=== PATIENT | female | born 1990 | race Caucasian/White ===

== ENCOUNTER 2016-10-03 23:36 | Emergency (ER) | payer BC ==
[2016-10-03 23:48] VITALS: BP 121/78
--- NOTE | 2016-10-04 00:13 | EDM.PDOC ---
ED HPI GENERAL MEDICAL PROBLEM - General Chief Complaint: Genitourinary Problem Stated Complaint: UTI Time Seen by Provider: 10/03/16 23:53 Source of Information: Reports: Patient, Family (), RN Notes Reviewed History Limitations: Reports: No Limitations - History of Present Illness INITIAL COMMENTS - FREE TEXT/NARRATIVE: The patient states that she developed lower back pain on , 09/28/2016. By 09/29/2016, she developed chills, a cough, stuffy nose, headache, and decreased appetite. She was seen at the walk-in clinic on 10/02/2016, where a rapid strep test and urinalysis were performed and both were negative. She was offered antibiotics anyway, but declined. She states that she has since developed a fever, with a Tmax of 102 last night , per an electronic forehead thermometer. She has been taking Tylenol and ibuprofen for her symptoms. The patient denies recent dysuria, frequency, or urgency, however, she reports that her urine has been cloudy and malodorous for the past few days. No prior similar symptoms. The patient does not have a PCP. - Related Data Allergies Allergy/AdvReac Type Severity Reaction Status Date / Time Sulfa (Sulfonamide Allergy Cannot Verified 10/03/16 23:48 Antibiotics) Remember Home Meds: Home Meds Levofloxacin [Levaquin] 250 mg PO Q24H #6 tablet 10/04/16 [Rx] Past Medical History - Past Surgical History Musculoskeletal Surgical History: Reports: Other (See Below) (Left knee repair December 2015) Social & Family History - Family History Family Medical History: Noncontributory - Tobacco Use Smoking Status *Q: Former Smoker Month Tobacco Last Used: 2012 Second Hand Smoke Exposure: Yes - Caffeine Use Caffeine Use: Reports: None - Alcohol Use Alcohol Use History: No - Recreational Drug Use Recreational Drug Use: No - Living Situation & Occupation Living situation: Reports: , with Spouse Occupation: Employed () ED ROS GENERAL - Review of Systems Review Of Systems: See Below Constitutional: Reports: No Symptoms HEENT: Reports: No Symptoms Respiratory: Reports: No Symptoms Cardiovascular: Reports: No Symptoms Endocrine: Reports: No Symptoms GI/Abdominal: Reports: No Symptoms : Reports: No Symptoms Musculoskeletal: Reports: No Symptoms Skin: Reports: No Symptoms Neurological: Reports: No Symptoms Psychiatric: Reports: No Symptoms Hematologic/Lymphatic: Reports: No Symptoms Immunologic: Reports: No Symptoms ED EXAM, GENERAL - Physical Exam Exam: See Below Exam Limited By: No Limitations General Appearance: Alert, WD/WN, No Apparent Distress Eye Exam: Bilateral Eye: Normal Inspection Ears: Normal External Exam, Hearing Grossly Normal Nose: Normal Inspection, No Blood Throat/Mouth: Normal Inspection, Normal Lips, Normal Voice, No Airway Compromise Head: Atraumatic, Normocephalic Neck: Normal Inspection, Full Range of Motion Respiratory/Chest: No Respiratory Distress, Lungs Clear, Normal Breath Sounds, No Accessory Muscle Use Cardiovascular: Normal Peripheral Pulses, Regular Rate, Rhythm, No Gallop, No JVD, No Murmur, No Rub Peripheral Pulses: 4+: Radial (L), Radial (R) GI/Abdominal: Normal Bowel Sounds, Soft, No Organomegaly, No Distention, No Abnormal Bruit, No Mass, Tender (Mild, generalized, non-focal) (Female) Exam: Deferred Rectal (Female) Exam: Deferred Back Exam: Normal Inspection, Full Range of Motion, CVA Tenderness (R). No: CVA Tenderness (L) Extremities: Normal Inspection, Normal Range of Motion, No Pedal Edema, Normal Capillary Refill Neurological: Alert, Oriented, Normal Cognition, No Motor/Sensory Deficits Psychiatric: Normal Affect Skin Exam: Warm, Dry, Intact, Normal Color, No Rash Lymphatic: No Adenopathy Course - Vital Signs Last Recorded V/S: Last Vital Signs Temp 36.6 C 10/03/16 23:41 Pulse 88 10/03/16 23:41 Resp 18 10/03/16 23:41 BP 121/78 10/03/16 23:41 Pulse Ox 98 10/03/16 23:41 - Orders/Labs/Meds Orders: Active Orders 24 hr Category Date Time Status CULTURE URINE [RM] Stat Lab 10/04/16 00:21 Uncollected Levofloxacin [Levaquin] Med 10/04/16 00:22 Stat 500 mg PO ONETIME STA Labs: Laboratory Tests 10/03/16 10/03/16 Range/Units 23:45 23:45 Urine Color Yellow (Yellow) Urine Appearance Slt cloudy H (Clear) Urine pH 6.0 (5.0-8.0) Ur Specific [place] > or = 1.030 (1.005-1.030) Urine Protein 2+ H (Negative) Urine Glucose (UA) Negative (Negative) Urine Ketones Negative (Negative) Urine Occult Blood 2+ H (Negative) Urine Nitrite Positive H (Negative) Urine Bilirubin Negative (Negative) Urine Urobilinogen 0.2 (0.2-1.0) Ur Leukocyte Esterase 1+ H (Negative) Urine RBC 0-5 (0-5) /hpf Urine WBC 20-30 H (0-5) /hpf Ur Epithelial Cells 0-5 (0-5) /hpf Urine Bacteria Moderate H (FEW) /hpf Urine Mucus Few (FEW) /hpf Urine HCG, Qual Negative (NEGATIVE) - Re-Assessments/Exams Free Text/Narrative Re-Assessment/Exam: 10/04/16 00:22 The patient's urinalysis is consistent with a UTI. A urine culture has been ordered. As the patient has right flank pain, and a history of a fever, clinically, she has pyelonephritis. Fluoroquinolones are the only oral antimicrobial recommended for the outpatient empiric treatment of acute on, due to pyelonephritis. I have therefore started the patient on oral Levaquin, and will e-prescribe the same. Departure - Departure Time of Disposition: 00:32 Disposition: Home, Self-Care 01 Condition: Fair Clinical Impression: Pyelonephritis - Discharge Information Referrals: PCP,None [Primary Care Provider] - Beulah Briones PA-C [Physician Coater Hand] - Forms: ED Department Discharge Additional Instructions: You were seen in the emergency room for low back pain, fever and chills, cough, stuffy nose, headache, and decreased appetite. Workup in the ER included a urinalysis and urine test. A sample of your urine has also been sent for culture. Your urinalysis is consistent with a urinary tract infection. Because you have flank pain, tenderness, and fever, you likely have pyelonephritis, an infection of your kidney. You have been started on the antibiotic Levaquin. Take one tablet every evening , as prescribed. Check with your pharmacist to make sure that it is okay to crush this medicine. Finish the entire prescription unless told otherwise by a doctor. Stay adequately hydrated. Take [id number] ibuprofen, 2-3 tablets (400-600 mg) every 8 hours, with food, as needed for discomfort. Follow-up with Beulah Briones in the clinic on 10/06/2016, to check on your urine culture results, to make sure that you are on the right antibiotic. If any other problems, please do not hesitate to return to the ER. - My Orders Last 24 Hours: My Active Orders 10/04/16 00:21 CULTURE URINE [RM] Stat 10/04/16 00:22 Levofloxacin [Levaquin] 500 mg PO ONETIME STA - Assessment/Plan Last 24 Hours: My Active Orders 10/04/16 00:21 CULTURE URINE [RM] Stat 10/04/16 00:22 Levofloxacin [Levaquin] 500 mg PO ONETIME STA
[2016-10-04] MEDS ORDERED: Levofloxacin 500 MG Tab PO STA (00:22)
== END 2016-10-04 00:43 | disposition home or self-care (01) ==
LOC: JD.ED 23:36
DX: N12 Tubulo-interstitial nephritis, not specified as acute or chronic (principal); Z87.891 Personal history of nicotine dependence; Z88.2 Allergy status to sulfonamides
CPT/HCPCS: 81001; 81025; 87086; 87088; 87186; 99284; A9270; 99283

== ENCOUNTER 2017-08-16 15:03 | Inpatient (IN) | payer BC ==
[2017-08-16] MEDS ORDERED: Sodium Chloride 0.9% 10 ML Syringe FLUSH PRN (16:27)
--- NOTE | 2017-08-16 17:14 | PCM.LDHP ---
L&D History of Present Illness - General Date of Service: 08/16/17 Admit Problem/Dx: Patient Status Order with Admit Dx/Problem 08/16/17 16:27 Patient Status [ADT] Routine Admission Diagnosis/Problem Admission Diagnosis/Problem 08/16/17 17:09 Leakage of fluid in Source of Information: Patient History Limitations: Reports: No Limitations - History of Present Illness Introduction:: 27 yo G1 at 39 weeks 2 days gestation (based on 10 week ultrasound) presents to labor and delivery with possible SROM at home. States two days ago she had some leakage, she wasn't sure if it was her mucus plug or not. Today she notes LOF started at noon. she has had normal movement. Amnisure on the floor was positive, blood was present which can cause false positive continued leakage of fluid since presentation to labor and delivery. routine care. GBS neg B positive pt has refused TDAP immunization Location, : Reports: Abdomen Quality: Reports: Ache Severity: Mild Associated Symptoms: Reports: vaginal fluid. Denies: vaginal bleeding, vaginal clots - Related Data Allergies/Adverse Reactions: Allergies Allergy/AdvReac Type Severity Reaction Status Date / Time Sulfa (Sulfonamide Allergy Cannot Verified 08/16/17 15:39 Antibiotics) Remember Home Medications: Home Meds Iron 18 mg PO 08/16/17 [History] Vits #93/Iron Fum/FA [ Formula Tablet] 08/16/17 [History] Past Medical History - Past Health History Medical/Surgical History: Denies Medical/Surgical History HEENT History: Reports: None Cardiovascular History: Reports: None Respiratory History: Reports: None Gastrointestinal History: Reports: None Genitourinary History: Reports: Other (See Below) Other Genitourinary History: pyelonephritis 09/2016 [employer] History: Reports: Musculoskeletal History: Reports: None Neurological History: Reports: None Psychiatric History: Reports: None Endocrine/Metabolic History: Reports: None - Past Surgical History HEENT Surgical History: Reports: Oral Surgery Female Surgical History: Reports: None Musculoskeletal Surgical History: Reports: Other (See Below) Social & Family History - Family History Family Medical History: Noncontributory - Tobacco Use Smoking Status *Q: Former Smoker Used Tobacco, but Quit: Yes Month/Year Tobacco Last Used: 2013 - Caffeine Use Caffeine Use: Reports: None - Recreational Drug Use Recreational Drug Use: No - Living Situation & Occupation Living situation: Reports: , with Spouse Occupation: Employed () H&P Review of Systems - Review of Systems: Review Of Systems: See Below General: Reports: No Symptoms HEENT: Reports: No Symptoms Pulmonary: Reports: No Symptoms Cardiovascular: Reports: No Symptoms Gastrointestinal: Reports: No Symptoms Genitourinary: Reports: No Symptoms, Other (contractions) Musculoskeletal: Reports: No Symptoms Skin: Reports: No Symptoms Psychiatric: Reports: No Symptoms L&D Exam - Exam Exam: See Below - Vital Signs Vital Signs: Last Vital Signs Temp 36.8 C 08/16/17 15:20 Pulse 69 08/16/17 15:20 Resp 18 08/16/17 15:20 BP 130/75 08/16/17 15:20 Pulse Ox Weight: 82.1 kg - OB Specific Contraction Intensity: Mild to Moderate Movement: Active Heart Tones: Present Heart Tones per Min: 135 Presentation: Vertex Estimated Weight: 3500 - Reyes Score Reyes Score Cervix Position: Posterior Reyes Score Consistency: Soft Reyes Score Effacement: >80% Reyes Score Dilation: 1-2 cm Reyes Score 's Station: -2 Reyes Score Total: 7 - Exam General: Alert, Oriented HEENT: Conjunctiva Clear Genitourinary: Normal external exam Extremities: Normal Inspection, No Pedal Edema Skin: Warm, Dry DTR: 2+: Patella (L), Patella (R) Psychiatric: Alert, Normal Affect, Normal Mood - Patient Data Lab Results Last 24 hrs: Laboratory Results - last 24 hr 08/16/17 08/16/17 Range/Units 15:30 16:48 WBC 11.96 H (3.98-10.04) K/mm3 RBC 4.08 (3.98-5.22) M/mm3 Hgb 12.4 (11.2-15.7) gm/L Hct 36.0 (34.1-44.9) % MCV 88.2 (79.4-94.8) fl MCH 30.4 (25.6-32.2) pg MCHC 34.4 (32.2-35.5) g/dl RDW Std Deviation 43.0 (36.4-46.3) fL Plt Count 215 (182-369) K/mm3 MPV 10.2 (9.4-12.3) fl Neut % (Auto) 77.2 H (34.0-71.1) % Lymph % (Auto) 14.5 L (19.3-51.7) % [place] % (Auto) 7.1 (4.7-12.5) % Eos % (Auto) 0.8 (0.7-5.8) Baso % (Auto) 0.1 (0.1-1.2) % Neut # (Auto) 9.23 H (1.56-6.13) K/mm3 Lymph # (Auto) 1.74 (1.18-3.74) K/mm3 [place] # (Auto) 0.85 H (0.24-0.36) K/mm3 Eos # (Auto) 0.10 (0.04-0.36) K/mm3 Baso # (Auto) 0.01 (0.01-0.08) K/mm3 Membrane Rupture Positive H Result Diagrams: 08/16/17 16:48 - Problem List (1) Normal labor SNOMED Code(s): 42789202 ICD Code: O80 - ENCOUNTER FOR FULL-TERM UNCOMPLICATED DELIVERY; Z37.9 - OUTCOME OF DELIVERY, UNSPECIFIED Status: Acute Current Visit: Yes Problem List Initiated/Reviewed/Updated: Yes Orders Last 24hrs: Active Orders 24 hr Category Date Time Status Patient Status [ADT] Routine ADT 08/16/17 16:27 Active Activity as Tolerated [RC] PFP Care 08/16/17 16:27 Active Communication Order [RC] ASDIRECTED Care 08/16/17 16:27 Active Heart Tones [RC] ASDIRECTED Care 08/16/17 16:27 Active Non Stress Test [RC] PER UNIT ROUTINE Care 08/16/17 15:33 Active Insert Kevin Catheter [Insert Urinary Catheter] [OM.PC] Care 08/16/17 16:30 Ordered Q24H Notify Provider [RC] PFP Care 08/16/17 16:27 Active Notify Provider [RC] PRN Care 08/16/17 16:27 Active PCEA Epidural [RC] ASDIRECTED Care 08/16/17 16:29 Active Peripheral IV Care [RC] . DIRECTED Care 08/16/17 16:27 Active Urinary Catheter Assessment [RC] ASDIRECTED Care 08/16/17 16:29 Active Vaginal Exam [RC] PRN Care 08/16/17 15:33 Active Vital Signs [RC] PER UNIT ROUTINE Care 08/16/17 15:33 Active TYPE AND SCREEN [BBK] Stat Lab 08/16/17 16:27 Ordered Lactated Ringers [Ringers, Lactated] 1,000 ml Med 08/16/17 16:30 Active IV ASDIRECTED Sodium Chloride 0.9% [Saline Flush] Med 08/16/17 16:27 Active 10 ml FLUSH ASDIRECTED PRN Electronic Heart Tones Ext w TOCO [WOMSER] Oth 08/16/17 16:27 Ordered Routine Electronic Heart Tones Internal [WOMSER] Per Unit Oth 08/16/17 16:27 Ordered Routine Peripheral IV Insertion Adult [OM.PC] Routine Oth 08/16/17 16:27 Ordered Resuscitation Status Routine Resus Stat 08/16/17 15:33 Ordered Medication Orders Lactated Ringer's (Ringers, Lactated) 1,000 mls @ 100 mls/hr IV ASDIRECTED ALDO Sodium Chloride (Saline Flush) 10 ml FLUSH ASDIRECTED PRN PRN Reason: Keep Vein Open Assessment/Plan Comment:: 27 yo G1 with SROM which likely occured at 1200 today with onset of contractions after SROM. Pt is GBS neg contractions have not been regular. She has minimal cervical dilation at this time. Nursing will check cervix at 1900. If no cervical change will start pitocin. Pain control per pt request. Anticipate vaginal delviery
[2017-08-16] MEDS ORDERED: Bupivacaine 0.25% 10 ML SDV ONE (18:00)
[2017-08-16] MEDS ORDERED: ePHEDrine 50 MG/ML SDV IVPUSH PRN (19:04)
[2017-08-16] MEDS ORDERED: fentaNYL 100 MCG/2 ML SDV EPIDUR PRN (19:04)
[2017-08-16] MEDS ORDERED: diphenhydrAMINE 50 MG/ML SDV IVPUSH PRN (19:04)
[2017-08-16] MEDS ORDERED: Bupivacaine/fentaNYL/NS 100 ML Bag EPIDUR SCH (19:15)
[2017-08-16] MEDS: Lactated Ringers 1,000 ML IV SCH (19:40)
--- NOTE | 2017-08-16 20:31 | PCM.PREANE ---
Preanesthetic Assessment - Anesthesia/Transfusion/Family Hx Anesthesia History: Prior Anesthesia Without Reaction Family History of Anesthesia Reaction: No Transfusion History: No Prior Transfusion(s) - Review of Systems General: No Symptoms Pulmonary: No Symptoms Cardiovascular: No Symptoms Gastrointestinal: No Symptoms Neurological: No Symptoms Other: Reports: None - Physical Assessment Pulse: 69 O2 Sat by Pulse Oximetry: 97 Respiratory Rate: 18 Blood Pressure: 130/75 Temperature: 36.3 C Vital Signs: Last Vital Signs Temp 36.8 C 08/16/17 15:20 Pulse 69 08/16/17 15:20 Resp 18 08/16/17 15:20 BP 130/75 08/16/17 15:20 Pulse Ox Height: 1.65 m Weight: 82.1 kg ASA Class: 2 Mental Status: Alert & Oriented x3 Airway Class: Mallampati = 1 Dentition: Reports: Normal Dentition Thyro-Mental Finger Breadths: 3 Mouth Opening Finger Breadths: 3 ROM/Head Extension: Full Lungs: Clear to Auscultation, Normal Respiratory Effort Cardiovascular: Regular Rate, Regular Rhythm - Lab Values: Laboratory Last Values WBC 11.96 K/mm3 (3.98-10.04) H 08/16/17 16:48 RBC 4.08 M/mm3 (3.98-5.22) 08/16/17 16:48 Hgb 12.4 gm/L (11.2-15.7) 08/16/17 16:48 Hct 36.0 % (34.1-44.9) 08/16/17 16:48 MCV 88.2 fl (79.4-94.8) 08/16/17 16:48 MCH 30.4 pg (25.6-32.2) 08/16/17 16:48 MCHC 34.4 g/dl (32.2-35.5) 08/16/17 16:48 RDW Std Deviation 43.0 fL (36.4-46.3) 08/16/17 16:48 Plt Count 215 K/mm3 (182-369) 08/16/17 16:48 MPV 10.2 fl (9.4-12.3) 08/16/17 16:48 Neut % (Auto) 77.2 % (34.0-71.1) H 08/16/17 16:48 Lymph % (Auto) 14.5 % (19.3-51.7) L 08/16/17 16:48 [place] % (Auto) 7.1 % (4.7-12.5) 08/16/17 16:48 Eos % (Auto) 0.8 (0.7-5.8) 08/16/17 16:48 Baso % (Auto) 0.1 % (0.1-1.2) 08/16/17 16:48 Neut # (Auto) 9.23 K/mm3 (1.56-6.13) H 08/16/17 16:48 Lymph # (Auto) 1.74 K/mm3 (1.18-3.74) 08/16/17 16:48 [place] # (Auto) 0.85 K/mm3 (0.24-0.36) H 08/16/17 16:48 Eos # (Auto) 0.10 K/mm3 (0.04-0.36) 08/16/17 16:48 Baso # (Auto) 0.01 K/mm3 (0.01-0.08) 08/16/17 16:48 Membrane Rupture Positive H 08/16/17 15:30 Blood Type B POSITIVE 08/16/17 16:48 Gel Antibody Screen Negative 08/16/17 16:48 - Allergies Allergies/Adverse Reactions: Allergies Allergy/AdvReac Type Severity Reaction Status Date / Time Sulfa (Sulfonamide Allergy Cannot Verified 08/16/17 15:39 Antibiotics) Remember - Anesthesia Plan Pre-Op Medication Ordered: None - Acknowledgements Anesthesia Type Planned: Epidural Pt an Appropriate Candidate for the Planned Anesthesia: Yes Alternatives and Risks of Anesthesia Discussed w Pt/Guardian: Yes Pt/Guardian Understands and Agrees with Anesthesia Plan: Yes PreAnesthesia Questionnaire - Past Health History Medical/Surgical History: Denies Medical/Surgical History HEENT History: Reports: None Cardiovascular History: Reports: None Respiratory History: Reports: None Gastrointestinal History: Reports: None Genitourinary History: Reports: Other (See Below) Other Genitourinary History: pyelonephritis 09/2016 [employer] History: Reports: Musculoskeletal History: Reports: None Neurological History: Reports: None Psychiatric History: Reports: None Endocrine/Metabolic History: Reports: None - Past Surgical History HEENT Surgical History: Reports: Oral Surgery Female Surgical History: Reports: None Musculoskeletal Surgical History: Reports: Other (See Below) - SUBSTANCE USE Smoking Status *Q: Former Smoker Tobacco Use Within Last Twelve Months: No Recreational Drug Use History: No - HOME MEDS Home Medications: Home Meds Iron 18 mg PO 08/16/17 [History] Vits #93/Iron Fum/FA [ Formula Tablet] 08/16/17 [History] - CURRENT (IN HOUSE) MEDS Current Meds: Current Medications Diphenhydramine HCl (Benadryl) 25 mg IVPUSH Q6H PRN PRN Reason: Itching Ephedrine Sulfate (Ephedrine Sulfate) 5 mg IVPUSH ASDIRECTED PRN PRN Reason: HYPOTENTSION Fentanyl (Sublimaze) 100 mcg EPIDUR Q3H PRN PRN Reason: PAIN Last Admin: 08/16/17 20:15 Dose: 100 mcg Fentanyl/Bupivacaine HCl (Fentanyl/Bupivacaine/Ns 2 Mcg-0.125% 100 Ml) 100 ml EPIDUR ASDIRECTED ALDO Last Admin: 08/16/17 20:16 Dose: 100 ml Lactated Ringer's (Ringers, Lactated) 1,000 mls @ 100 mls/hr IV ASDIRECTED ALDO Sodium Chloride (Saline Flush) 10 ml FLUSH ASDIRECTED PRN PRN Reason: Keep Vein Open
[2017-08-16] MEDS ORDERED: Oxytocin/Lactated Ringers 10 UNIT/1,000 ML BAG IV ONE (23:12)
[2017-08-16] MEDS ORDERED: Lidocaine 1% 50 ML MDV ONE (23:21)
[2017-08-16] MEDS ORDERED: Carboprost Tromethamine 250 MCG/1 ML Amp ONE (23:39)
[2017-08-17] MEDS ORDERED: Benzocaine/Menthol 20%-0.5% Spray 56 GM Canister TOP PRN (00:06)
[2017-08-17] MEDS ORDERED: Lanolin 100% Cream 7 GM Tube TOP PRN (00:06)
[2017-08-17] MEDS ORDERED: Witch Hazel Medicated Pads 100/Jar TOP PRN (00:06)
[2017-08-17] MEDS ORDERED: Acetaminophen 325 MG Tab PO PRN (00:06)
[2017-08-17] MEDS ORDERED: Docusate Sodium 100 MG Cap PO PRN (00:06)
[2017-08-17] MEDS ORDERED: Oxytocin/Lactated Ringers 10 UNIT/1,000 ML BAG IV SCH (00:15)
--- NOTE | 2017-08-17 00:19 | PCM.DEL ---
L & D Note - General Info Date of Service: 08/17/17 Mother's Due Date: 08/21/17 - Delivery Note Labor: Spontaneous Delivery Outcome: Livebirth Infant Delivery Method: Spontaneous Vaginal Delivery-Single Delivery Mode: Spontaneous Presentation: Vertex Nuchal Cord: None Anesthesia Type: Epidural Laceration: 2nd Degree, Vaginal Suture type: Vicryl Suture size: 3-0 Placenta: Intact, Spontaneous Cord: 3 Vessels Estimated Blood Loss: 500 Resuscitation Needed: No Neffs: Stimulated, Warmed Score 1 min: 8 Score 5 min: 9 Second Stage Interventions: Reports: Pushing Effectively Delivery Comments (Free Text/Narrative):: 27 yo G1now P1 delivered a viable female weighing 6lbs 9 ounces at 2317 on 08/16/17 under epidrual anesthesia. Delivery was via to a sterile field. there was no nuchal cord. Infant was placed on mom's abdomen. Cord was clamped and cut. Cord blood was obtained. Apgars were ...An intact placenta with a 3 vessel cord delivered spontaneously at 2320. 10 units of IV pitocin was administered in 1 liter of normal saline. vagina and cervix were explored. A midline 2nd degree laceration was repaired in the usual fashion with 3-0 vicryl suture. Pt continued to have vaginal bleeding. A right vaginal laceration was located as the site of bleeding and repaired with a running suture of 3-0 vicryl and 2 figure of 8 sutures. EBL 500 cc. Patient and infant in recovery room in stable condition. - General Info Date of Service: 08/17/17 - Patient Data Vitals - Most Recent: Last Vital Signs Temp 36.3 C 08/16/17 20:30 Pulse 69 08/16/17 20:30 Resp 18 08/16/17 20:30 BP 130/75 08/16/17 20:30 Pulse Ox 97 08/16/17 20:30 Weight - Most Recent: 82.1 kg Lab Results Last 24 Hours: Laboratory Results - last 24 hr 08/16/17 08/16/17 08/16/17 Range/Units 15:30 16:48 16:48 WBC 11.96 H (3.98-10.04) K/mm3 RBC 4.08 (3.98-5.22) M/mm3 Hgb 12.4 (11.2-15.7) gm/L Hct 36.0 (34.1-44.9) % MCV 88.2 (79.4-94.8) fl MCH 30.4 (25.6-32.2) pg MCHC 34.4 (32.2-35.5) g/dl RDW Std Deviation 43.0 (36.4-46.3) fL Plt Count 215 (182-369) K/mm3 MPV 10.2 (9.4-12.3) fl Neut % (Auto) 77.2 H (34.0-71.1) % Lymph % (Auto) 14.5 L (19.3-51.7) % [place] % (Auto) 7.1 (4.7-12.5) % Eos % (Auto) 0.8 (0.7-5.8) Baso % (Auto) 0.1 (0.1-1.2) % Neut # (Auto) 9.23 H (1.56-6.13) K/mm3 Lymph # (Auto) 1.74 (1.18-3.74) K/mm3 [place] # (Auto) 0.85 H (0.24-0.36) K/mm3 Eos # (Auto) 0.10 (0.04-0.36) K/mm3 Baso # (Auto) 0.01 (0.01-0.08) K/mm3 Membrane Rupture Positive H Blood Type B POSITIVE Gel Antibody Screen Negative Med Orders - Current: Current Medications Acetaminophen (Tylenol) 650 mg PO Q4H PRN PRN Reason: mild pain or fever Benzocaine/Menthol (Dermoplast Pain Relief [place]) 0 gm TOP ASDIRECTED PRN PRN Reason: Perineal Comfort Measure Diphenhydramine HCl (Benadryl) 25 mg IVPUSH Q6H PRN PRN Reason: Itching Docusate Sodium (Colace) 100 mg PO BID PRN PRN Reason: Constipation Emollient Ointment (Lansinoh Hpa) 0 gm TOP ASDIRECTED PRN PRN Reason: Sore Nipples Ephedrine Sulfate (Ephedrine Sulfate) 5 mg IVPUSH ASDIRECTED PRN PRN Reason: HYPOTENTSION Fentanyl (Sublimaze) 100 mcg EPIDUR Q3H PRN PRN Reason: PAIN Last Admin: 08/16/17 20:15 Dose: 100 mcg Fentanyl/Bupivacaine HCl (Fentanyl/Bupivacaine/Ns 2 Mcg-0.125% 100 Ml) 100 ml EPIDUR ASDIRECTED ALDO Last Admin: 08/16/17 20:16 Dose: 100 ml Lactated Ringer's (Ringers, Lactated) 1,000 mls @ 100 mls/hr IV ASDIRECTED ALDO Oxytocin/Lactated Ringer's (Pitocin In Lr 10 Units/1,000 Ml) 10 unit in 1,000 mls @ 100 mls/hr IV TITRATE ALDO Ibuprofen (Motrin) 600 mg PO Q4H PRN PRN Reason: Mild pain or fever Sodium Chloride (Saline Flush) 10 ml FLUSH ASDIRECTED PRN PRN Reason: Keep Vein Open Witch Zoe (Tucks) 1 pad TOP ASDIRECTED PRN PRN Reason: Hemorrhoid pain Discontinued Medications Carboprost Tromethamine (Hemabate Ds) Confirm Administered Dose 250 mcg .ROUTE .STK-MED ONE Stop: 08/16/17 23:40 Oxytocin/Lactated Ringer's (Pitocin In Lr 10 Units/1,000 Ml) Confirm Administered Dose 10 unit in 1,000 mls @ as directed IV .STK-MED ONE Stop: 08/16/17 23:13 Lidocaine HCl (Xylocaine 1%) Confirm Administered Dose 50 ml .ROUTE .STK-MED ONE Stop: 08/16/17 23:22 - Problem List & Annotations (1) Normal labor SNOMED Code(s): 45624133 Code(s): O80 - ENCOUNTER FOR FULL-TERM UNCOMPLICATED DELIVERY; Z37.9 - OUTCOME OF DELIVERY, UNSPECIFIED Status: Acute Current Visit: Yes - Problem List Review Problem List Initiated/Reviewed/Updated: Yes - My Orders Last 24 Hours: My Active Orders 08/16/17 15:33 Non Stress Test [RC] PER UNIT ROUTINE Vaginal Exam [RC] PRN Vital Signs [RC] PER UNIT ROUTINE Resuscitation Status Routine 08/16/17 16:27 Patient Status [ADT] Routine Activity as Tolerated [RC] PFP Communication Order [RC] ASDIRECTED Heart Tones [RC] ASDIRECTED Notify Provider [RC] PFP Notify Provider [RC] PRN Peripheral IV Care [RC] . DIRECTED Sodium Chloride 0.9% [Saline Flush] 10 ml FLUSH ASDIRECTED PRN Electronic Heart Tones Ext w TOCO [WOMSER] Routine Electronic Heart Tones Internal [WOMSER] Per Unit Routine Peripheral IV Insertion Adult [OM.PC] Routine 08/16/17 16:29 PCEA Epidural [RC] ASDIRECTED Urinary Catheter Assessment [RC] ASDIRECTED 08/16/17 16:30 Insert Kevin Catheter [Insert Urinary Catheter] [OM.PC] Q24H Lactated Ringers [Ringers, Lactated] 1,000 ml IV ASDIRECTED 08/17/17 00:05 Patient Status Manage Transfer [TRANSFER] Routine 08/17/17 00:06 Patient Status [ADT] Routine Activity as Tolerated [RC] PER UNIT ROUTINE Vital Signs [RC] ASDIRECTED Acetaminophen [Tylenol] 650 mg PO Q4H PRN Benzocaine/Menthol [Dermoplast Pain Relief [place]] See Dose Instructions TOP ASDIRECTED PRN Docusate Sodium [Colace] 100 mg PO BID PRN Ibuprofen [Motrin] 600 mg PO Q4H PRN Lanolin [Lansinoh HPA] See Dose Instructions TOP ASDIRECTED PRN Witch Zoe [Tucks] 1 pad TOP ASDIRECTED PRN Assess Lochia [WOMSER] Per Unit Routine Assess Uterine Involution [WOMSER] Per Unit Routine Breast Pump [WOMSER] Per Unit Routine Medication Administration Instruction [OM.PC] Routine Perineal Care [OM.PC] Per Unit Routine Sitz Bath [OM.PC] Per Unit Routine 08/17/17 00:15 Oxytocin/Lactated Ringers [Pitocin in LR 10 Units/1,000 ML] 10 unit in 1,000 ml IV TITRATE Heat Therapy [OM.PC] PRN 08/17/17 05:11 HEMOGLOBIN/HEMATOCRIT,HH [HEME] AM 08/17/17 Breakfast Regular Diet [DIET] 08/18/17 00:15 Heat Therapy [OM.PC] PRN - Plan Plan:: 27 yo G1 with SROM which likely occured at 1200 today with onset of contractions after SROM. Pt is GBS neg contractions have not been regular. She has minimal cervical dilation at this time. Nursing will check cervix at 1900. If no cervical change will start pitocin. Pain control per pt request. Anticipate vaginal delviery
[2017-08-17] MEDS ORDERED: Loperamide 2 MG Cap PO ONE (00:43)
[2017-08-17] MEDS: Lactated Ringers 1,000 ML IV SCH (01:10)
--- NOTE | 2017-08-17 07:36 | PCM.PNPP ---
- General Info Date of Service: 08/17/17 Subjective Update: 27 yo at PPD 1 s/p NVD with 2nd degree laceration. no concerns per patient or nursing. Diarrhea x 2 after administration of hemabate. Functional Status: Reports: Pain Controlled, Tolerating Diet, Ambulating, Urinating - Review of Systems General: Reports: No Symptoms Gastrointestinal: Reports: Diarrhea (x2) Genitourinary: Reports: No Symptoms - General Info Date of Service: 08/17/17 - Patient Data Vital Signs - Most Recent: Last Vital Signs Temp 36.3 C 08/16/17 20:30 Pulse 69 08/16/17 20:30 Resp 18 08/16/17 20:30 BP 130/75 08/16/17 20:30 Pulse Ox 97 08/16/17 20:30 Weight - Most Recent: 82.1 kg I&O - Last 24 Hours: Intake & Output 08/16/17 08/17/17 08/17/17 22:59 06:59 14:59 Intake Total 4000 Balance 4000 Lab Results - Last 24 Hours: Laboratory Results - last 24 hr 08/16/17 08/16/17 08/16/17 Range/Units 15:30 16:48 16:48 WBC 11.96 H (3.98-10.04) K/mm3 RBC 4.08 (3.98-5.22) M/mm3 Hgb 12.4 (11.2-15.7) gm/L Hct 36.0 (34.1-44.9) % MCV 88.2 (79.4-94.8) fl MCH 30.4 (25.6-32.2) pg MCHC 34.4 (32.2-35.5) g/dl RDW Std Deviation 43.0 (36.4-46.3) fL Plt Count 215 (182-369) K/mm3 MPV 10.2 (9.4-12.3) fl Neut % (Auto) 77.2 H (34.0-71.1) % Lymph % (Auto) 14.5 L (19.3-51.7) % [place] % (Auto) 7.1 (4.7-12.5) % Eos % (Auto) 0.8 (0.7-5.8) Baso % (Auto) 0.1 (0.1-1.2) % Neut # (Auto) 9.23 H (1.56-6.13) K/mm3 Lymph # (Auto) 1.74 (1.18-3.74) K/mm3 [place] # (Auto) 0.85 H (0.24-0.36) K/mm3 Eos # (Auto) 0.10 (0.04-0.36) K/mm3 Baso # (Auto) 0.01 (0.01-0.08) K/mm3 Membrane Rupture Positive H Blood Type B POSITIVE Gel Antibody Screen Negative 08/17/17 Range/Units 05:55 WBC (3.98-10.04) K/mm3 RBC (3.98-5.22) M/mm3 Hgb 11.0 L (11.2-15.7) gm/L Hct 32.1 L (34.1-44.9) % MCV (79.4-94.8) fl MCH (25.6-32.2) pg MCHC (32.2-35.5) g/dl RDW Std Deviation (36.4-46.3) fL Plt Count (182-369) K/mm3 MPV (9.4-12.3) fl Neut % (Auto) (34.0-71.1) % Lymph % (Auto) (19.3-51.7) % [place] % (Auto) (4.7-12.5) % Eos % (Auto) (0.7-5.8) Baso % (Auto) (0.1-1.2) % Neut # (Auto) (1.56-6.13) K/mm3 Lymph # (Auto) (1.18-3.74) K/mm3 [place] # (Auto) (0.24-0.36) K/mm3 Eos # (Auto) (0.04-0.36) K/mm3 Baso # (Auto) (0.01-0.08) K/mm3 Membrane Rupture Blood Type Gel Antibody Screen Med Orders - Current: Current Medications Acetaminophen (Tylenol) 650 mg PO Q4H PRN PRN Reason: mild pain or fever Benzocaine/Menthol (Dermoplast Pain Relief [place]) 0 gm TOP ASDIRECTED PRN PRN Reason: Perineal Comfort Measure Last Admin: 08/17/17 01:06 Dose: 1 applic Docusate Sodium (Colace) 100 mg PO BID PRN PRN Reason: Constipation Emollient Ointment (Lansinoh Hpa) 0 gm TOP ASDIRECTED PRN PRN Reason: Sore Nipples Oxytocin/Lactated Ringer's (Pitocin In Lr 10 Units/1,000 Ml) 10 unit in 1,000 mls @ 100 mls/hr IV TITRATE [facility] Ibuprofen (Motrin) 600 mg PO Q4H PRN PRN Reason: Mild pain or fever Witch Zoe (Tucks) 1 pad TOP ASDIRECTED PRN PRN Reason: Hemorrhoid pain Last Admin: 08/17/17 01:07 Dose: 1 applic Discontinued Medications Carboprost Tromethamine (Hemabate Ds) Confirm Administered Dose 250 mcg .ROUTE .STK-MED ONE Stop: 08/16/17 23:40 Last Admin: 08/16/17 23:45 Dose: 250 mcg Diphenhydramine HCl (Benadryl) 25 mg IVPUSH Q6H PRN PRN Reason: Itching Ephedrine Sulfate (Ephedrine Sulfate) 5 mg IVPUSH ASDIRECTED PRN PRN Reason: HYPOTENTSION Fentanyl (Sublimaze) 100 mcg EPIDUR Q3H PRN PRN Reason: PAIN Last Admin: 08/16/17 20:15 Dose: 100 mcg Fentanyl/Bupivacaine HCl (Fentanyl/Bupivacaine/Ns 2 Mcg-0.125% 100 Ml) 100 ml EPIDUR ASDIRECTED [facility] Last Admin: 08/16/17 20:16 Dose: 100 ml Lactated Ringer's (Ringers, Lactated) 1,000 mls @ 100 mls/hr IV ASDIRECTED [facility] Last Admin: 08/17/17 01:10 Dose: 100 mls/hr Oxytocin/Lactated Ringer's (Pitocin In Lr 10 Units/1,000 Ml) Confirm Administered Dose 10 unit in 1,000 mls @ as directed IV .STK-MED ONE Stop: 08/16/17 23:13 Last Admin: 08/17/17 01:11 Dose: 500 mls/hr Lidocaine HCl (Xylocaine 1%) Confirm Administered Dose 50 ml .ROUTE .STK-MED ONE Stop: 08/16/17 23:22 Loperamide HCl (Imodium) 2 mg PO ONETIME ONE Stop: 08/17/17 00:44 Last Admin: 08/17/17 01:05 Dose: 2 mg Sodium Chloride (Saline Flush) 10 ml FLUSH ASDIRECTED PRN PRN Reason: Keep Vein Open - Interaction Infant Disposition, : [place] in Room with Family Interaction: Holding Infant Infant Feeding: Attempted ; Nursed Fair/Poor Support Person: - Recovery Exam Fundal Tone: Firm Fundal Level: At Umbilicus Fundal Placement: Midline Lochia Amount: Moderate Lochia Color: Brownish - Exam General: Alert, Oriented Extremities: No Pedal Edema Skin: Warm, Dry, Intact - Problem List & Annotations (1) Normal labor SNOMED Code(s): 19618458 Code(s): O80 - ENCOUNTER FOR FULL-TERM UNCOMPLICATED DELIVERY; Z37.9 - OUTCOME OF DELIVERY, UNSPECIFIED Status: Acute Current Visit: Yes (2) Vaginal delivery SNOMED Code(s): 349491262 Code(s): O80 - ENCOUNTER FOR FULL-TERM UNCOMPLICATED DELIVERY Status: Acute Current Visit: Yes - Problem List Review Problem List Initiated/Reviewed/Updated: Yes - My Orders Last 24 Hours: My Active Orders 08/16/17 15:33 Vaginal Exam [RC] PRN Vital Signs [RC] PER UNIT ROUTINE Resuscitation Status Routine 08/16/17 16:27 Heart Tones [RC] ASDIRECTED Peripheral IV Care [RC] . DIRECTED 08/16/17 16:29 PCEA Epidural [RC] ASDIRECTED Urinary Catheter Assessment [RC] ASDIRECTED 08/17/17 00:06 Patient Status [ADT] Routine Activity as Tolerated [RC] PER UNIT ROUTINE Vital Signs [RC] 03,09,15,21 Acetaminophen [Tylenol] 650 mg PO Q4H PRN Benzocaine/Menthol [Dermoplast Pain Relief [place]] See Dose Instructions TOP ASDIRECTED PRN Docusate Sodium [Colace] 100 mg PO BID PRN Ibuprofen [Motrin] 600 mg PO Q4H PRN Lanolin [Lansinoh HPA] See Dose Instructions TOP ASDIRECTED PRN Witch Zoe [Tucks] 1 pad TOP ASDIRECTED PRN Assess Lochia [WOMSER] Per Unit Routine Assess Uterine Involution [WOMSER] Per Unit Routine Breast Pump [WOMSER] Per Unit Routine Medication Administration Instruction [OM.PC] Routine Perineal Care [OM.PC] Per Unit Routine Sitz Bath [OM.PC] Per Unit Routine 08/17/17 00:15 Oxytocin/Lactated Ringers [Pitocin in LR 10 Units/1,000 ML] 10 unit in 1,000 ml IV TITRATE Heat Therapy [OM.PC] PRN 08/17/17 Breakfast Regular Diet [DIET] 08/18/17 00:15 Heat Therapy [OM.PC] PRN - Plan Plan:: 27 yo G1 with SROM which likely occured at 1200 today with onset of contractions after SROM. Pt is GBS neg contractions have not been regular. She has minimal cervical dilation at this time. Nursing will check cervix at 1900. If no cervical change will start pitocin. Pain control per pt request. Anticipate vaginal delviery 08/17/17 27 yo at 8 hours s/p with 2nd degree laceration continue with routine care support and education needed throughout stay Pt has refused Tdap for self. Considering infant immunizations.
[2017-08-17] MEDS: Ibuprofen 600 MG Tab PO PRN ×3 (09:03→22:25)
--- NOTE | 2017-08-17 13:06 | PCM48HPAN ---
Post Anesthesia Note - EVALUATION WITHIN 48HRS OF ANESTHETIC Vital Signs in Normal Range: Yes Patient Participated in Evaluation: Yes Respiratory Function Stable: Yes Airway Patent: Yes Cardiovascular Function Stable: Yes Hydration Status Stable: Yes Pain Control Satisfactory: Yes Nausea and Vomiting Control Satisfactory: Yes Mental Status Recovered: Yes
--- NOTE | 2017-08-18 08:48 | PCM.DCSUM1 ---
Discharge Summary - Hospital Course Free Text/Narrative:: 27 year old presented at 39 weeks and 2 days gestation with leaking fluids. She was GBS negative and blood type B+ . 27 yo G1now P1 delivered a viable female weighing 6lbs 9 ounces at 2317 on 08/16/17 under epidural anesthesia. Delivery was via to a sterile field. there was no nuchal cord. was placed on mom's abdomen. Cord was clamped and cut. Cord blood was obtained. Apgars were 8 and 9. An intact placenta with a 3 vessel cord delivered spontaneously at 2320. 10 units of IV pitocin was administered in 1 liter of normal saline. vagina and cervix were explored. A midline 2nd degree laceration was repaired in the usual fashion with 3-0 vicryl suture. Pt continued to have vaginal bleeding. A right vaginal laceration was located as the site of bleeding and repaired with a running suture of 3-0 vicryl and 2 figure of 8 sutures. EBL 500 cc. She did receive a dose of Hemabate. Patient and infant in recovery room in stable condition. Patient has done well , with bleeding moderate and no clots. She has been using ibuprofen for pain control. She has been having issues with getting the baby to stay latched. She has been using the nipple shield during and the breast shell in between nursing. She denies having cracked or bruised nipples, but they are flat. Joanne RN, was working with her overnight and had her start pumping and was able to obtain about 5 ml of colostrum which she fed with a syringe. She has a breast pump at home. Her EPDS score was 0. - Discharge Data Discharge Date: 08/18/17 Discharge Disposition: Home, Self-Care 01 Condition: Good - Discharge Diagnosis/Problem(s) (1) Vaginal delivery SNOMED Code(s): 684054518 ICD Code: O80 - ENCOUNTER FOR FULL-TERM UNCOMPLICATED DELIVERY Status: Acute Current Visit: Yes (2) (infant) SNOMED Code(s): 503806428 ICD Code: Z78.9 - OTHER SPECIFIED HEALTH STATUS Status: Acute Current Visit: Yes - Patient Instructions Diet: Regular Diet as Tolerated Activity: As Tolerated Activity, Other: No intercourse for 6 weeks Driving: May Drive Today Showering/Bathing: May Shower Notify Provider of: Fever, Increased Pain, Swelling and Redness, Drainage, Nausea and/or Vomiting - Discharge Plan Home Medications: Home Meds Iron 18 mg PO 08/16/17 [History] Vits #93/Iron Fum/FA [ Formula Tablet] 08/16/17 [History] Acetaminophen [Tylenol] 650 mg PO Q4H PRN tablet 08/18/17 [Rx] Benzocaine/Menthol [Dermoplast Pain Relief [place]] 1 applic TOP ASDIRECTED PRN canister 08/18/17 [Rx] Docusate Sodium [Colace] 100 mg PO BID PRN cap 08/18/17 [Rx] Ibuprofen [Motrin] 600 mg PO Q6H PRN tablet 08/18/17 [Rx] Lanolin [Lansinoh HPA] 1 applic TOP ASDIRECTED PRN tube 08/18/17 [Rx] Damari Zoe [Tucks] 1 pad TOP ASDIRECTED PRN pad 08/18/17 [Rx] Patient Handouts: , Home Care Instructions for Mom, Vaginal Delivery, Care After Referrals: Betsey Albert MD [Primary Care Provider] - - Discharge Summary/Plan Comment DC Time >30 min.: No - General Info Date of Service: 08/18/17 Admission Dx/Problem (Free Text: Patient Status Order with Admit Dx/Problem 08/16/17 16:27 Patient Status [ADT] Routine Admission Diagnosis/Problem Admission Diagnosis/Problem 08/16/17 17:09 Leakage of fluid in Functional Status: Reports: Pain Controlled, Tolerating Diet, Ambulating, Urinating - Review of Systems General: Reports: No Symptoms HEENT: Reports: No Symptoms Pulmonary: Reports: No Symptoms Cardiovascular: Reports: No Symptoms Gastrointestinal: Reports: Constipation (No BM since right after delivery. usually has 2 BM's a day) Genitourinary: Reports: No Symptoms - Patient Data Vitals - Most Recent: Last Vital Signs Temp 37.2 C 08/18/17 03:29 Pulse 73 08/18/17 03:29 Resp 12 08/18/17 03:29 BP 125/75 08/18/17 03:29 Pulse Ox 96 08/18/17 03:29 Weight - Most Recent: 82.1 kg Med Orders - Current: Current Medications Acetaminophen (Tylenol) 650 mg PO Q4H PRN PRN Reason: mild pain or fever Benzocaine/Menthol (Dermoplast Pain Relief [place]) 0 gm TOP ASDIRECTED PRN PRN Reason: Perineal Comfort Measure Last Admin: 08/17/17 01:06 Dose: 1 applic Docusate Sodium (Colace) 100 mg PO BID PRN PRN Reason: Constipation Emollient Ointment (Lansinoh Hpa) 0 gm TOP ASDIRECTED PRN PRN Reason: Sore Nipples Oxytocin/Lactated Ringer's (Pitocin In Lr 10 Units/1,000 Ml) 10 unit in 1,000 mls @ 100 mls/hr IV TITRATE ALDO Ibuprofen (Motrin) 600 mg PO Q4H PRN PRN Reason: Mild pain or fever Last Admin: 08/17/17 22:25 Dose: 600 mg Witch Zoe (Tucks) 1 pad TOP ASDIRECTED PRN PRN Reason: Hemorrhoid pain Last Admin: 08/17/17 01:07 Dose: 1 applic Discontinued Medications Bupivacaine HCl (Sensorcaine-Mpf 0.25%) 10 ml .ROUTE .STK-MED ONE Stop: 08/16/17 18:01 Carboprost Tromethamine (Hemabate Ds) Confirm Administered Dose 250 mcg .ROUTE .STK-MED ONE Stop: 08/16/17 23:40 Last Admin: 08/16/17 23:45 Dose: 250 mcg Diphenhydramine HCl (Benadryl) 25 mg IVPUSH Q6H PRN PRN Reason: Itching Ephedrine Sulfate (Ephedrine Sulfate) 5 mg IVPUSH ASDIRECTED PRN PRN Reason: HYPOTENTSION Fentanyl (Sublimaze) 100 mcg EPIDUR Q3H PRN PRN Reason: PAIN Last Admin: 08/16/17 20:15 Dose: 100 mcg Fentanyl/Bupivacaine HCl (Fentanyl/Bupivacaine/Ns 2 Mcg-0.125% 100 Ml) 100 ml EPIDUR ASDIRECTED [facility] Last Admin: 08/16/17 20:16 Dose: 100 ml Lactated Ringer's (Ringers, Lactated) 1,000 mls @ 100 mls/hr IV ASDIRECTED ALDO Last Admin: 08/17/17 01:10 Dose: 100 mls/hr Oxytocin/Lactated Ringer's (Pitocin In Lr 10 Units/1,000 Ml) Confirm Administered Dose 10 unit in 1,000 mls @ as directed IV .STK-MED ONE Stop: 08/16/17 23:13 Last Admin: 08/17/17 01:11 Dose: 500 mls/hr Lidocaine HCl (Xylocaine 1%) Confirm Administered Dose 50 ml .ROUTE .STK-MED ONE Stop: 08/16/17 23:22 Loperamide HCl (Imodium) 2 mg PO ONETIME ONE Stop: 08/17/17 00:44 Last Admin: 08/17/17 01:05 Dose: 2 mg Sodium Chloride (Saline Flush) 10 ml FLUSH ASDIRECTED PRN PRN Reason: Keep Vein Open
[2017-08-18 15:31] VITALS: BP 124/63
== END 2017-08-18 17:58 | disposition home or self-care (01) | DRG 560 ==
LOC: JD.OBCHECK 15:03 → JD.OB 15:07 → JD.OBCHECK 16:50 → JD.OB 16:52 → OBSVTOIN 23:17 → JD.OB 23:18
PROVIDERS: ADMIT Family Medicine; ATTEND Family Medicine
PROC: 10E0XZZ Delivery of Products of Conception, External Approach (ICD-10-PCS; principal; 2017-08-16)
PROC: 0KQM0ZZ Repair Perineum Muscle, Open Approach (ICD-10-PCS; 2017-08-16)
PROC: 6A550ZT Pheresis of Cord Blood Stem Cells, Single (ICD-10-PCS; 2017-08-16)
PROC: 00HU33Z Insertion of Infusion Device into Spinal Canal, Percutaneous Approach (ICD-10-PCS; 2017-08-16)
PROC: 3E0R3BZ Introduction of Anesthetic Agent into Spinal Canal, Percutaneous Approach (ICD-10-PCS; 2017-08-16)
DX: O70.1 Second degree perineal laceration during delivery (principal); Z3A.39 39 weeks gestation of pregnancy; Z37.0 Single live birth; Z87.891 Personal history of nicotine dependence; Z88.2 Allergy status to sulfonamides
CPT/HCPCS: 36415; 51702; 59025; 59300; 59409; 84112; 85014; 85018; 85025; 86850; 86900; 86901; A9270-GY; J2590; J3010; J7120